=== PATIENT | female | born 2000 | race Caucasian/White ===

== ENCOUNTER 2020-08-23 11:22 | Outpatient (REF) | payer OTHER, SELFPAY | END 2020-08-23 11:23 | disposition home or self-care (01) | LOC: HO.LAB 11:22 | PROVIDERS: Visit Provider Internal Medicine | DX: Z20.822 Contact with and (suspected) exposure to COVID-19 (principal) | CPT/HCPCS: C9803; U0003; U0005 ==

== ENCOUNTER 2020-08-29 15:09 | Outpatient (REF) | payer OTHER, SELFPAY | END 2020-08-29 15:10 | disposition home or self-care (01) | LOC: HO.LAB 15:09 | PROVIDERS: Visit Provider Internal Medicine | DX: Z20.822 Contact with and (suspected) exposure to COVID-19 (principal) | CPT/HCPCS: C9803; U0003; U0005 ==

== ENCOUNTER 2020-11-10 02:48 | Emergency (ER) | payer OTHER, SELFPAY ==
[2020-11-10 03:00] VITALS: BP 142/90; PULSE 80; RESP 18; TEMP 36.3; O2SAT 99; BMI 32.0
--- NOTE | 2020-11-10 03:09 | ED_ITS ---
HPI - Dental/Oral General Chief complaint: Dental/Oral Stated complaint: Dental Pain Time Seen by Provider: 11/10/20 03:05 Source: patient Mode of arrival: ambulatory Limitations: no limitations History of Present Illness HPI Narrative: patient comes emergency room complaining of dental pain. Patient states she has had pain in the mandible on the right side for 2 weeks. Patient has history of an unfinished dental root canal on the left side, therefore she only chews on the right side. Patient denies fever and chills, states her cheek is a bit swollen. MD Complaint: tooth pain Related Data Previous Rx's Medication Instructions Recorded ibuprofen 600 mg PO BID PRN #7 tab 11/10/20 penicillin V potassium 500 mg PO BID #20 tab 11/10/20 Allergies Allergy/AdvReac Type Severity Reaction Status Date / Time No Known Allergies Allergy Verified 11/10/20 03:04 [No Known Allergies*] Review of Systems Review of Systems: Constitutional : No Weight loss, No Fever, No Chills, No Night Sweats, No Fatigue, No Malaise ENT/Mouth : No Hearing loss, No Ear Pain, No Nasal Congestion, No Sinus Pain, No Hoarseness, No sore throat, No Rhinorrhea, No Swallowing Difficulty , complaining of right maxillary dental pain Eyes: No Eye Pain, No Swelling, No Redness, No Foreign Body, No Discharge, No Vision Changes Cardiovascular : No Chest Pain, No SOB, No Dyspnea on Exertion, No Orthopnea, No Edema, No Palpitations Respiratory : No Cough, No Sputum, No Wheezing, No Smoke Exposure, No Dyspnea Gastrointestinal : No Nausea, No Vomiting, No Diarrhea, No Constipation, No abdominal Pain, No Hematochezia, No Melena Genitourinary : no irregular bleeding, No Dysuria, No Urinary Frequency, No Hematuria, No Urinary Incontinence, No Urgency, No Flank Pain, No Urinary Flow Changes, No Hesitancy Musculoskeletal : No joint pain, No Myalgias, No Joint Swelling Skin : No Skin Lesions, No rash Neuro : No Weakness, No Numbness, No Paresthesias, No Loss of Consciousness, No Dizziness, No Headache Psych : No Anxiety/Panic, No Depression, No SI/HI/AH/VH, No Social Issues, Heme/Lymph: No Bruising, No Bleeding,No Lymphadenopathy Endocrine : No Polyuria, No Polydipsia, No Temperature Intolerance [facility] Past Medical History Medical History HX: benign breast biopsy Social History Social History Patient : No Physical Exam Vital Signs: Vital Signs: Last Vital Signs Temp 97.3 F 11/10/20 03:00 Pulse 80 11/10/20 03:00 Resp 18 11/10/20 03:00 BP 142/90 H 11/10/20 03:00 Pulse Ox 99 11/10/20 03:00 Body Mass Index 32.0 Appearance: Alert. Oriented X3. No acute distress. Eyes: Pupils equal, round and reactive to light. ENT: Pharynx normal. poor dentition, more noticeable on the left side, mild erythema in the gums on the right side, no visible abscess Neck: Normal inspection. Neck supple. No lymph nodes noted. No crepitus CVS: Normal heart rate and rhythm. Pulses normal. Normal S1 and S2 Respiratory: No respiratory distress. Breath sounds normal. No Wheezing. No rales Abdomen: Soft and nontender. No rigidity. No distention. good BS x4 Skin: Skin warm and dry. Normal skin color. Normal skin turgor. Extremities: No lower extremity edema. No lower extremity edema. No Lacerations. No Rash Neuro: Oriented X 3. No motor deficit. No sensory deficit. Moving all extermities. No slurred speech. Course Course Course Narrative: I discussed the physical exam with the patient, patient will be started on oral antibiotics, 1 IM dose of Toradol given. Patient needs to have close follow-up with her dentist. Discharge Plan Discharge Clinical Impression: Toothache Patient Disposition: Home, Self-Care Instructions: Toothache (ED) Additional Instructions: Please follow-up with your primary care physician tomorrow. If you have any worsening or new symptoms, please return to the emergency room or call 911 Prescriptions: New penicillin V potassium 500 mg tablet 500 mg PO BID Qty: 20 RF: 0 ibuprofen 600 mg tablet 600 mg PO BID PRN (Reason: pain) Qty: 7 RF: 0
[2020-11-10] MEDS: Penicillin V Potassium 250 MG TABLET 500 MG PO (03:58)
[2020-11-10] MEDS: Ketorolac Tromethamine 60 MG/2 ML VIAL IM (03:58)
== END 2020-11-10 04:02 | disposition home or self-care (01) ==
LOC: HO.ED 03:25
PROVIDERS: Emergency Provider Emergency Medicine
DX: K08.89 Other specified disorders of teeth and supporting structures (principal)
CPT/HCPCS: 96372; 99283; 99284; J1885